=== PATIENT | male | born 1970 | race Caucasian/White ===

== ENCOUNTER 2021-01-02 06:45 | Inpatient (IN) | payer OTHER ==
[~2021-01-02] VITALS: Ht 170.2 cm; Wt 108.0 kg
--- NOTE | 2021-01-02 06:57 | NUR ---
SE RECIBE PACIENTE ALERTA, ORIENTADO X 3 ESFERAS REFIERE TENER DOLOR ABDOMINAL QUE SE IRRADIA A ESPALDA HACE 3 MARES SE UBICA EN AREA DE OBSERVACION.
--- NOTE | 2021-01-02 09:24 | NUR ---
PTE ALERTA,ESTABLE Y ORIENTADO.SE EDUCA SOBRE EL TRATAMIENTO QUE SE EL REALZIARA EN EL [facility] Y [facility] REFIERE ENTENDER.SE LE ADMINISTRA MEDICAMENTOS LIZZY ORDEN MEDICA. Y SE MANTIENE BAJO OSBERVACION.
[2021-01-03] MEDS ORDERED: MELOXICAM15 MG PO (09:26)
[2021-01-03] MEDS ORDERED: TAMS0.4C PO (09:27)
[2021-01-03] MEDS ORDERED: LEVOFLOXACIN500 MG PO (09:27)
== END 2021-01-03 11:15 | disposition home or self-care (01) | DRG 694 ==
LOC: ER 06:45 → SURH 17:43 → SEC-K 17:43 → SURH 20:13 → MEDJ 20:47 → SURH 21:49
PROVIDERS: ADMIT Surgery; ATTEND Surgery
PROC: BW21ZZZ Computerized Tomography (CT Scan) of Abdomen and Pelvis (ICD-10-PCS; principal; 2021-01-02)
PROC: 8E0ZXY6 Isolation (ICD-10-PCS; 2021-01-02)
DX: N20.1 Calculus of ureter (principal); Z20.822 Contact with and (suspected) exposure to COVID-19; R10.9 Unspecified abdominal pain